=== PATIENT | female | born 1980 | race Two or more races ===

== ENCOUNTER 2016-05-23 12:43 | Emergency (ER) | payer OTHER ==
[2016-05-23] MEDS ORDERED: MAALOX/LIDO2%VISC/SIMETHICONE 40 ML BOT ONE (13:30)
[2016-05-23] MEDS ORDERED: ASPIRIN CHEWTAB 81 MG TABLET ONE (13:30)
[2016-05-23 13:45] LABS: ABSOLUTE NEUTROPHIL COUNT 3.5 K/mm3 (1.8-7.7); BASO % 0.5 % (0.2-1.0); EOS # 0.1 (0.0-0.5); EOS % 0.9 % (0.9-2.9); HEMOGLOBIN 12.9 gm/l (12.0-16.0); IMM NEUT% 0.3 % (0-1); LYMPH # 3.6 (1.0-4.8); LYMPH % 46.4 % (15-45); MEAN CELL VOLUME 81.4 fl (81.0-99.0); MEAN CORPUSCULAR HEMOGLOBIN 26.9 pg (27.0-31.0); MEAN CORPUSCULAR HGB CONC 33.1 g/dl (33.0-37.0); MONO # 0.5 (0.0-0.8); MONO % 6.8 % (4-12); NEUT % 45.1 % (43-75); PLATELET COUNT 76 K/mm3 (130-400); RED CELL DISTRIBUTION WIDTH 14.6 % (11.5-14.5)
[2016-05-23 13:55] LABS: ALBUMIN 4.1 gm/dL (3.5-5.7); CALCIUM 8.9 mg/dL (8.6-10.3)
[2016-05-23 13:56] LABS: ALB/GLOB RATIO 1.1 (>1.0)
[2016-05-23 13:57] LABS: TROPONIN I < 0.01 ng/ml (0.0-0.06)
[2016-05-23 14:01] LABS: CKMB ISOENZYME 1.1 ng/ml (0.6-6.3)
--- NOTE | 2016-05-23 14:02 | RAD ---
EXAMINATION:CHEST - 2 VIEWS CLINICAL INDICATION: Chest pain for 2 weeks COMPARISON:none FINDINGS: The cardiomediastinal silhouette is within normal limits. There is no adenopathy identified. There is no pleural effusion. The lungs are clear. The osseous structures are unremarkable for age. IMPRESSION: Negative PA and lateral views of the chest. No acute cardiopulmonary process is identified.
== END 2016-05-23 15:45 | disposition home or self-care (01) ==
LOC: ED 12:43
DX: K21.0 Gastro-esophageal reflux disease with esophagitis (principal); I10 Essential (primary) hypertension; E11.9 Type 2 diabetes mellitus without complications; Z79.899 Other long term (current) drug therapy
CPT/HCPCS: 83690; 85025; 82553; 80053; 84484; 71020; 99284 ×2; 93005; A9270 ×2